=== PATIENT | female | born 1980 | race Caucasian/White ===

== ENCOUNTER 2020-02-04 11:40 | Outpatient (CLI) | payer MEDICAID, SELFPAY ==
--- NOTE | 2020-02-04 11:45 | USCV_ITS ---
Amanda Aceves Age: 39 Gender: F : 1980 Exam Date: 02/04/2020 12:00 Ordering Phys: Arturo Keenan Technologist: Liss Ross Exam Location: [facility] [place]_ Indication: R/O DVT. FOREARM PAIN. HISTORY: Upper extremity pain. PROCEDURES: Examined were the right jugular, subclavian, axillary, brachial, basilic, radial, ulnar and cephalic veins. Serial compression, augmentation maneuvers, and spectral Doppler flow evaluation were performed. FINDINGS: All veins appear free of thrombus. No filling defects on color Doppler flow analysis. Increase in venous flow with augmentation. Vein flow and caliber vary with respiration. All veins appear compressible.. CONCLUSIONS No evidence of thrombus of the right upper extremity veins. Omar Hooper MD (Electronically Signed) Final Date: 04 February 2020 12:48 S
== END 2020-02-04 11:41 | disposition home or self-care (01) ==
LOC: RADWPI 11:49
PROVIDERS: PCP Family Medicine; Visit Provider Family Medicine
DX: M79.631 Pain in right forearm (principal)
CPT/HCPCS: 93971

== ENCOUNTER 2020-06-21 19:32 | Emergency (ER) | payer MEDICAID, SELFPAY ==
[2020-06-21 19:37] VITALS: BP 114/86; PULSE 83; RESP 20; TEMP 36.4; O2SAT 96; BMI 39.6
--- NOTE | 2020-06-21 20:03 | XRR_ITS ---
PROCEDURE INFORMATION: Exam: XR Chest, 1 View Exam date and time: 06/21/2020 8:30 PM Age: 39 years old Clinical indication: Dyspnea; Prior surgery; Surgery type: Valve, gb TECHNIQUE: Imaging protocol: XR of the chest Views: 1 view. COMPARISON: No relevant prior studies available. FINDINGS: Tubes, catheters and devices: Cardiomegaly with cardiac valve prosthesis. Lungs: Linear areas of scarring or atelectasis right mid and left lower lung. Pleural space: Likely artifact at the level of the costophrenic angles versus underlying pleural thickening. Heart/Mediastinum: See discussion above. Bones/joints: Postoperative sternotomy. XR/XR chest 1V portable [id number] IMPRESSION: 1. Cardiac enlargement. 2. Linear areas of scarring or atelectasis right mid and left lower lung.
--- NOTE | 2020-06-21 20:04 | CTR_ITS ---
PROCEDURE INFORMATION: Exam: CT Angiography Chest With Contrast Exam date and time: 06/21/2020 9:17 PM Age: 39 years old Clinical indication: Shortness of breath; Other: Nvd w bloody stool; Prior surgery; Surgery date: 6+ months; Surgery type: Valve, gb; Patient HX: C/O SOB w n/v/d and bloody stool; Additional info: Dyspnea, n/v/d bloody stool TECHNIQUE: Imaging protocol: Computed tomographic angiography of the chest with intravenous contrast. 3D rendering (Not supervised by radiologist): MIP and/or 3D reconstructed images were created by the technologist. Radiation optimization: All CT scans at this facility use at least one of these dose optimization techniques: automated exposure control; mA and/or kV adjustment per patient size (includes targeted exams where dose is matched to clinical indication); or iterative reconstruction. Contrast material: VISI 320; Contrast volume: 75 ml; Contrast route: INTRAVENOUS (IV); COMPARISON: No relevant prior studies available. RADIATION DOSE METRICS: Total DLP (mGy-cm): 2288.33 FINDINGS: Pulmonary arteries: The main pulmonary artery is dilated to 4.3 cm. The pulmonary arteries are adequately opacified for evaluation to the subsegmental level. There is no filling defect to suggest embolism. Aorta: The aorta is unremarkable. There is no aneurysm. Lungs: There is mild diffuse bilateral interlobular septal thickening. There is subsegmental atelectasis in the lower lungs bilaterally. There is no focal consolidation. Pleural space: Unremarkable. No pneumothorax. No pleural effusion. Heart: There is moderate enlargement of the right atrium and right ventricle. There is no pericardial effusion. Lymph nodes: There is lymph node enlargement in the upper mediastinum measuring up to 2.5 x 1.9 cm in the right paratracheal region on axial series 301, image 127. Bilateral hilar lymph nodes are mildly prominent. Bones/joints: There has been a sternotomy with intact repair. No dehiscence. Soft tissues: The extrathoracic soft tissues are unremarkable. IMPRESSION: 1. No pulmonary embolism. 2. Findings suggestive of pulmonary hypertension. 3. Nonspecific upper mediastinal lymphadenopathy. 4. Diffuse bilateral interlobular septal thickening suggest mild interstitial edema. PROCEDURE INFORMATION: Exam: CT Angiography Abdomen and Pelvis With Contrast Exam date and time: 06/21/2020 9:17 PM Age: 39 years old Clinical indication: Shortness of breath; Other: Nvd w bloody stool; Prior surgery; Surgery date: 6+ months; Surgery type: Valve, gb; Patient HX: C/O SOB w n/v/d and bloody stool; Additional info: Dyspnea, n/v/d bloody stool TECHNIQUE: Imaging protocol: Computed tomographic angiography of the abdomen and pelvis with intravenous contrast material. 3D rendering (Not supervised by radiologist): MIP and/or 3D reconstructed images were created by the technologist. Radiation optimization: All CT scans at this facility use at least one of these dose optimization techniques: automated exposure control; mA and/or kV adjustment per patient size (includes targeted exams where dose is matched to clinical indication); or iterative reconstruction. Contrast material: VISI 320; Contrast volume: 75 ml; Contrast route: INTRAVENOUS (IV); COMPARISON: No relevant prior studies available. RADIATION DOSE METRICS: Total DLP (mGy-cm): 1223.57 FINDINGS: Aorta: The aorta is small diffusely. The infrarenal aorta measures up to a 1 cm diameter. The distal aorta is occluded at the level of the iliac bifurcation. Celiac trunk and mesenteric arteries: No occlusion or significant stenosis. Renal arteries: No occlusion or significant stenosis. Right iliac arteries: The right common and external iliac arteries are completely occluded. Right femoral/popliteal arteries: There is reconstitution of the right common femoral artery from the inferior epigastric artery. Left iliac arteries: The origin of the left common iliac artery is occluded. The vessel is reconstituted and is widely patent 1 cm beyond the origin. Other veins: Left gonadal veins are dilated. Liver: The liver is normal. Gallbladder and bile ducts: The gallbladder is absent. There is mild edema in the kenneth hepatis. No biliary dilation. Pancreas: The pancreas is unremarkable. Spleen: The spleen is unremarkable. Adrenals: The adrenal glands are unremarkable. Kidneys and ureters: There is moderate atrophy of the right kidney. There is no hydronephrosis or ureteral dilation. Stomach and bowel: The colon is unremarkable. Appendix: The appendix is normal. Intraperitoneal space: There is trace fluid in the kenneth hepatis extending inferiorly into the retroperitoneum and right pelvis. There is no intrahepatic or extrahepatic bile duct dilation. There is no free air or significant intraperitoneal free fluid. There is no intraperitoneal free air. Lymph nodes: Small retrocrural lymph nodes are present. There are mildly prominent retroperitoneal lymph nodes. No frankly pathologically enlarged nodes. Normal pelvic and mesenteric lymph nodes. Bladder: The urinary bladder is unremarkable. Reproductive: The uterus is unremarkable. There is no adnexal mass or large cyst. Bones/joints: There are chronic bilateral L5 pars defects with grade 1 anterolisthesis of L5 on S1. Soft tissues: The abdominal wall is intact. The abdominal wall is intact. CT/CT angio chest abdomen pelvis IMPRESSION: 1. 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 The left common iliac artery is reconstituted 1 cm beyond its origin and is normal more distally. 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 The right common femoral artery is reconstituted via the inferior epigastric artery. 2. Small caliber aorta. The infrarenal aorta measures approximately 1 cm diameter. 3. Normal visceral arteries. 4. Incidental findings above. Radiation Dose CTDIVOL = (mGy): DLP = 1223.57~2288.33 (mGy-cm)
--- NOTE | 2020-06-21 20:05 | ECG_ITS ---
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 Measurements Intervals [place] Rate: 77 P: 53 SC: 171 QRS: 55 QRSD: 128 T: -16 QT: 396 QTc: 450 Interpretive Statements SINUS RHYTHM POSSIBLE LEFT ATRIAL ENLARGEMENT [-0.1mV P WAVE IN V1/V2] RIGHT BUNDLE BRANCH BLOCK [120+ ms QRS DURATION, UPRIGHT V1, 40+ ms S IN I/aVL/V4/V5/V6] MODERATE T-WAVE ABNORMALITY, CONSIDER INFERIOR ISCHEMIA [-0.1+ mV T WAVE IN II/aVF] No previous ECG available for comparison Electronically Signed On 06-22-2020 0:21:03 CDT by Bryan Caputo M.D. [email or web address]
[2020-06-21 20:24] VITALS: BP 97/70; PULSE 81; RESP 14; O2SAT 96
[2020-06-21 20:35] LABS: ABG PCO2 30.9 mmHg (35-45); ABG PH Result 7.41 (7.35-7.45); Arterial Blood Gas Hematocrit 44.6 % (37-47); Base Excess ABG -3.9 mmol/L (-2.0-2.0); Blood Gas Allen Test Pos; Blood Gas Sample Site Radial, right; Blood Gas Sample Type Arterial; HCO3 ABG 19.6 mmol/L (22-26); PO2 ABG 64.2 mmHg (80.0-100.0)
[2020-06-21 20:37] LABS: Basophils # 0.1 10^3/uL (0.0-0.1); Basophils % 0.4 %; Eosinophils % 0.2 %; Hematocrit 47.2 % (37.0-47.0); Hemoglobin 14.4 g/dL (11.5-15.3); Lymphocytes # 0.5 10^3/uL (0.8-4.8); Lymphocytes % 4.1 %; Mean Corpuscular HGB Conc 30.5 g/dL (30.0-36.0); Mean Corpuscular Hemoglobin 31.3 pg (28.0-34.0); Mean Corpuscular Volume 102.6 fL (81-99); Mean Platelet Volume 12.7 fL (7.4-10.4); Monocytes # 0.8 10^3/uL (0.2-0.9); Monocytes % 7.2 %; Neutrophils # 10.05 10^3/uL (1.8-7.7); Neutrophils % 87.8 %; Nucleated Red Blood Cells % 0.3 %; Platelet Count 198 10^3/cmm (130-400); Red Cell Distribution Width 18.6 % (12.1-15.1); White Blood Count 11.4 10^3/uL (4.0-10.0)
[2020-06-21] MEDS: ondansetron 2 mg/ML SDV 2 mL 4 MG IVP (20:43)
[2020-06-21] MEDS: sodium chloride 0.9% 1,000 ML 100 ML IV (20:43)
[2020-06-21] MEDS: piperacillin-tazobactam 3.375 GM in sodium chloride 0.9% (plus) 50 ML IV (20:43)
[2020-06-21 20:46] LABS: Bilirubin Urine Neg (NEGATIVE); Blood Urine 2+ (Negative); Glucose Urine UA Norm (Normal); Ketones Urine Negative (Negative); Leukocyte Esterase Urine Trace (Negative); Nitrate Urine Negative (Negative); Protein Urine 1+ (Negative); Specific Gravity, Urine 1.015 (1.005-1.030); Urine Appearance Clear (CLEAR); Urine Color Yellow (Yellow); Urobilinogen Urine Norm (Negative); pH Urine 5 (5-7)
[2020-06-21 20:49] LABS: Amphetamines Screen Urine Negative (Negative); Barbiturates Screen Urine Negative (Negative); Benzodiazepines Screen Urine Negative (Negative); Cocaine Screen Urine Negative (Negative); Opiate Screen Urine Negative (Negative); PCP Screen Urine Negative (Negative); THC Screen Urine Negative (Negative)
[2020-06-21 20:51] LABS: Add Urine Culture? No; Bacteria Urine 1+; Squamous Epithelial Cell Urine 15-25 (0-5); WBC Urine 0-4 /hpf (0-5)
[2020-06-21 21:00] LABS: INR 1.42 (0.8-1.2)
[2020-06-21 21:01] LABS: HCG, Serum Qual Negative (Negative)
[2020-06-21 21:03] LABS: D Dimer 1.08 ug/mIFEU (0-0.59)
[2020-06-21 21:10] LABS: Lactic Sepsis W/Reflex 2.1 mmol/L (0.5-2.2)
[2020-06-21 21:11] LABS: Troponin(5th) Baseline 18 ng/L (0-10)
[2020-06-21 21:16] LABS: Alanine Aminotransferase 88 U/L (0-33); Albumin Level 3.9 g/dL (3.5-5.2); Alkaline Phosphatase 136 IU/L (35-105); Aspartate Amino Transferase 53 U/L (0-32); Blood Urea Nitrogen 32 mg/dL (6-20); Calcium 8.6 mg/dL (8.5-10.5); Carbon Dioxide 19 mmol/L (22-29); Chloride 103 mmol/L (98-107); Globulin 3.7 g/dL (1.3-4.6); Glomerular Filtration Rate 49.8 mL/min (90-130); Glucose 137 mg/dL (65-115); Lipase 47 U/L (13-60); Osmolality Calculated 279 mOsm/kg (285-295); Sodium 135 mmol/L (136-145); Thyroid Stimulating Hormone 3.58 uIU/mL (0.27-4.20); Total Bilirubin 0.9 mg/dL (0.15-1.2); Total Protein 7.6 g/dL (6.6-8.7)
[2020-06-21 21:18] LABS: Anion Gap 17.4 (5-19); Potassium 4.4 mmol/L (3.5-5.1)
--- NOTE | 2020-06-21 21:46 | W.ED.SOB ---
HPI - SOB/Dyspnea General: Chief Complaint: Shortness of Breath/Dyspnea Stated Complaint: trouble breathing/ diarea/ vomiting Time Seen by Provider: 06/21/20 19:50 Source: patient and family Mode of arrival: ambulatory Limitations: no limitations History of Present Illness: HPI Narrative: Amanda is a nice 39-year-old female who comes in complaining of shortness of breath that is worse with exertion, nausea vomiting and diarrhea. Patient states that her symptoms began over the past 2 to 3 days. She is had numerous diarrhea stools and at times is been having blood in her stools. She states it is bright red in nature. She is vomited 3 times but denies any hematic emesis or coffee-ground emesis. She does admit to being on Eliquis. Patient also states she is got spots on her skin which are irritating and bothering her. She denies any cough, loss of sense of taste or loss of sense of smell. She is having intermittent cramping abdominal pain. She denies any chest pain she only complains of having shortness of breath. 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 She had a prolonged recovery and was discharged from [facility] and had to go to an LTAC for rehab. Patient is felt better until just recently. Associated symptoms: Reports abdominal pain, nausea and vomiting; Deny chest congestion, chest pain, diaphoresis, dizziness, extremity pain, fever(s), hemoptysis, lightheadedness, orthopnea, palpitations or syncope Review of Systems Const: Denies: fever(s), chills, body aches, fatigue, malaise or diaphoresis Eyes: Denies: change in vision, blurry vision, photophobia, eye discomfort, eye discharge or eye redness ENMT: Denies: throat pain, odynophagia, hoarseness, swelling of lips/tongue, ear or mastoid pain, ear discharge, change in hearing or nasal discharge Card: Denies: chest pain, palpitations, irregular heart rhythm, edema, lightheadedness, syncope, pre-syncope, dyspnea on exertion or orthopnea Resp: Reports: dyspnea; Denies: productive cough, non-productive cough, wheezing, hemoptysis or chest congestion GI: Reports: abdominal pain, nausea, vomiting, diarrhea and hematochezia; Denies: hematemesis, coffee ground emesis, heartburn, constipation or melena : Denies: flank pain, dysuria, urinary frequency, urinary urgency or hematuria Musc: Denies: neck pain, back pain, extremity pain, extremity swelling, joint pain, joint swelling, joint redness, joint warmth or joint stiffness Skin/Breast: Denies: rash, pruritus, erythema or skin tenderness Neuro: Denies: headache(s), numbness in extremities, weakness in extremities, sensory changes, lack of coordination, difficulty walking, dizziness, vertigo, confusion, Slurred speech present or seizure-like activity Dinh/Lymph: Denies: easy bruising, easy bleeding, petechiae, purpura or enlarged lymph nodes All/Imm: Denies: urticaria, throat swelling, tongue swelling, facial swelling or acute wheezing PFSH ED PFSH: Medical History (Updated 06/21/20 @ 23:21 by Urvashi Hernandez) Anemia Anxiety Congestive heart failure Depression GERD (gastroesophageal reflux disease) Hypertension Mitral valve prolapse Myocardial infarction Neuropathy Surgical History (Updated 06/21/20 @ 22:15 by Urvashi Hernandez) H/O tubal ligation Mitral valve replaced S/P cholecystectomy Female Reproductive History: Date of last menstrual period: 06/19/20 Physical Exam Const: COMMON NORMALS: no acute distress, patient oriented x3, no limitations, healthy appearing and well nourished GENERAL APPEARANCE: cooperative, well kempt and well developed HENMT: COMMON NORMALS: normocephalic, atraumatic, external ears normal, EAC's normal and Normal external nose present HEAD & SCALP: normal to inspection, normocephalic and atraumatic FACE & SINUS: normal facial exam and face symmetric NOSE: Normal external nose present and Normal nares present EXTERNAL EAR: Yes external ears normal EXTERNAL AUDITORY CANAL: EAC's normal MOUTH: Normal oral and palatal mucosa present, lip normal and tongue normal Eye: COMMON NORMALS: Equal, round and reactive pupils present and conjunctivae normal GENERAL EYE: appearance normal, both eyes and all related structures ALIGNMENT: Yes alignment normal PERIORBITAL: periorbital findings normal EYELID: eyelids normal CONJUNCTIVA: Yes conjunctivae normal SCLERA: sclerae normal PUPIL: Yes Equal, round and reactive pupils present Neck/C-Spine: COMMON NORMALS: full ROM, no lymphadenopathy, supple, no meningeal signs and no JVD GENERAL: Yes normal visual inspection and Yes trachea midline Chest: COMMONS NORMALS: normal inspection of the chest and normal palpation of entire chest wall Resp: COMMON NORMALS: normal respiratory effort, No retractions, No use of accessory muscles and clear to auscultation bilaterally EFFORT & INSPECTION: Yes able to speak in complete sentences and Yes symmetric chest movement AUSCULTATION: clear to auscultation bilaterally, no crackles, no rales, no rhonchi and no wheezes Cardio: COMMON NORMALS: no JVD, regular rate, regular rhythm, S1 normal heart sound present and S2 normal heart sound present RATE: regular rate RHYTHM: regular rhythm HEART SOUNDS: S1 normal heart sound present, S2 normal heart sound present, no click, no gallops, Murmur heart sound present, no rubs and abnormal split S2 GI: COMMON NORMALS: Soft to palpation and No hepatosplenomegaly present PALPATION: Yes Soft to palpation, No Tenderness to palpation present (GI), No Guarding due to palpation present (GI), No Rigid due to palpation, Yes No hepatosplenomegaly present, No Hernia present, No Palpable mass present and No Pulsatile mass present : COMMON NORMALS: Yes no CVA tenderness BLADDER/KIDNEY EXAM: Yes no CVA tenderness EXTERNAL FEMALE EXAM: No Hernia present Back/Pelvis: COMMON NORMALS: no CVA tenderness, thoracic and lumbar spine normal to inspection, no thoracic nor lumbar tenderness and thoraco-lumbar ROM normal Extremity: COMMON NORMALS: normal to inspection, full ROM, capillary refill normal, no joint enlargement, no clubbing, cyanosis or edema and no calf tenderness Neuro: COMMON NORMALS: patient oriented x3, CN's II-XII intact bilaterally, moves all extremities, no focal motor deficits and no sensory deficits noted MENINGEAL SIGNS: Yes no meningeal signs SPEECH: speech normal Psych: COMMON NORMALS: mental status grossly normal, Normal thought process present, cooperative, normal affect, speech normal and activity/motor behavior normal APPEARANCE: Yes well kempt SPEECH: Yes normal speech THOUGHT PROCESS: Normal thought process present Skin: COMMON NORMALS: no rashes or lesions noted, turgor normal, no jaundice, no petechiae and no mottling GENERAL SKIN EXAM: no rashes or lesions noted and turgor normal Course ED course: 2315 -patient has palpable and dopplered pulses in both lower extremities this was tested after CTA results. Vital Signs: Vital signs: Vital Signs Temperature 97.6 F 06/21/20 19:37 Pulse Rate 83 06/21/20 22:45 Respiratory Rate 12 06/21/20 22:45 Blood Pressure 113/84 06/21/20 22:45 Pulse Oximetry 98 06/21/20 22:45 MDM - SOB/Dyspnea MDM Narrative: Medical decision making narrative: 2321 - Amanda is a 39-year-old female who comes in with a complaints of shortness of breath and bloody diarrhea. Believe her shortness of breath is explained by pulmonary vascular congestion from CHF. Her bloody diarrhea I am concerned though may be caused by infection and made worse by the fact she is on Eliquis. Also concerned with lesions on the patient's skin that she may have a recurrence of her endocarditis. She been empirically loaded with Zosyn and vancomycin. 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 She has collateral flow so she has no ischemia to her extremities. Radiologist when I talked to him over the phone says the patient has good superior mesenteric and inferior mesenteric flow. Patient is already anticoagulated on Eliquis. Because of this aortic occlusion and her abdominal pain I have to be concerned about a possible acute cause although this is more than likely chronic. I have no vascular surgery available at this time and after discussing the case with Dr. Agee he agrees the patient is to be transferred to [facility]. Patient was previously seen and treated at [facility] when she had her last episode of sepsis from endocarditis. I have reviewed some of the information symptom from [facility] and it confirms the patient's report of having endocarditis, sepsis and a prolonged hospital stay. This time the patient is stable she has had more watery diarrhea here with slight blood tinge to it. Her abdominal pain is controlled. 2340 -the case was reviewed with Dr. Mejia at [facility] ER and he agrees to accept the patient in transfer. Patient is currently hemodynamically stable. Her pain is controlled and I do not believe it it is a good idea at this time to change anticoagulation as she is having frankly bloody stools. I would send the patient by air ambulance service if available but secondary to weather nothing is flying at this time. Patient will be transferred to life threat ground transport to [place]. Lab Data: Labs: Lab Results 06/21/20 06/21/20 06/21/20 Range/Units 20:20 20:20 20:25 WBC (4.0-10.0) 10^3/ uL RBC (4.1-5.3) 10^6/u L Hgb (11.5-15.3) g/dL Hct (37.0-47.0) % MCV (81-99) fL MCH (28.0-34.0) pg MCHC (30.0-36.0) g/dL RDW (12.1-15.1) % Plt Count (130-400) 10^3/c mm MPV (7.4-10.4) fL Neut % (Auto) % Lymph % (Auto) % [place] % (Auto) % Eos % (Auto) % Baso % (Auto) % Neut # (Auto) (1.8-7.7) 10^3/u L Lymph # (Auto) (0.8-4.8) 10^3/u L [place] # (Auto) (0.2-0.9) 10^3/u L Eos # (Auto) (0.0-0.8) 10^3/u L Baso # (Auto) (0.0-0.1) 10^3/u L Nucleated RBC % (a uto) % Nucleated RBCs # /100WBC PT (12.1-14.9) SECO NDS INR (0.8-1.2) APTT (23.9-36.7) SECO NDS D-Dimer (0-0.59) ug/mIFE U Specimen Type Arterial Sample Site Radial, right ABG pH 7.41 (7.35-7.45) ABG pCO2 30.9 L (35-45) mmHg ABG pO2 64.2 L (80.0-100.0) mmH g ABG HCO3 19.6 L (22-26) mmol/L ABG Base Excess -3.9 L (-2.0-2.0) mmol/ L Shilo Test Pos Hematocrit 44.6 (37-47) % Crab Steamer ID ellpe Sodium (136-145) mmol/L Potassium (3.5-5.1) mmol/L Chloride (98-107) mmol/L Carbon Dioxide (22-29) mmol/L Anion Gap (5-19) BUN (6-20) mg/dL Creatinine (0.5-0.9) mg/dL GFR Calculation (90-130) mL/min Glucose (65-115) mg/dL Calculated Osmolal ity (285-295) mOsm/k g Lactic Acid (0.5-2.2) mmol/L Lactic Acid (Sepsi s) (0.5-2.2) mmol/L Calcium (8.5-10.5) mg/dL Magnesium (1.7-2.3) mg/dL Total Bilirubin (0.15-1.2) mg/dL AST (0-32) U/L ALT (0-33) U/L Alkaline Phosphata se (35-105) IU/L Troponin T Baselin e (0-10) ng/L Troponin T 120 Min iliamna (0-10) ng/L Delta Troponin T (0-10) ABS# NT-Pro-B Natriuret Pep (0-125) pg/mL Total Protein (6.6-8.7) g/dL Albumin (3.5-5.2) g/dL Globulin (1.3-4.6) g/dL Lipase (13-60) U/L TSH (0.27-4.20) uIU/ mL HCG, Qual (Negative) Urine Color Yellow (Yellow) Urine Appearance Clear (CLEAR) Urine pH 5 (5-7) Ur Specific Gravit y 1.015 (1.005-1.030) Urine Protein 1+ H (Negative) Urine Glucose (UA) Norm (Normal) Urine Ketones Negative (Negative) Urine Blood 2+ H (Negative) Urine Nitrate Negative (Negative) Urine Bilirubin Neg (NEGATIVE) Urine Urobilinogen Norm (Negative) mg/dL Ur Leukocyte Kerry ase Trace H (Negative) Urine RBC 5-10 H (0-2) /hpf Urine WBC 0-4 H (0-5) /hpf Ur Squamous Epith Cells 15-25 H (0-5) Amorphous Sediment Not Reportable Urine Bacteria 1+ H (NONE) Urine Opiates Scre en Negative (Negative) ng/mL Ur Barbiturates Sc reen Negative (Negative) ng/mL Ur Phencyclidine S crn Negative (Negative) ng/mL Ur Amphetamines Sc reen Negative (Negative) ng/mL U Benzodiazepines Scrn Negative (Negative) ng/mL Urine Cocaine Scre en Negative (Negative) ng/mL U Marijuana (THC) Screen Negative (Negative) ng/mL 06/21/20 06/21/20 06/21/20 Range/Units 20:26 20:26 20:26 WBC 11.4 H (4.0-10.0) 10^3/ uL RBC 4.60 (4.1-5.3) 10^6/u L Hgb 14.4 (11.5-15.3) g/dL Hct 47.2 H (37.0-47.0) % MCV 102.6 H (81-99) fL MCH 31.3 (28.0-34.0) pg MCHC 30.5 (30.0-36.0) g/dL RDW 18.6 H (12.1-15.1) % Plt Count 198 (130-400) 10^3/c mm MPV 12.7 H (7.4-10.4) fL Neut % (Auto) 87.8 % Lymph % (Auto) 4.1 % [place] % (Auto) 7.2 % Eos % (Auto) 0.2 % Baso % (Auto) 0.4 % Neut # (Auto) 10.05 H (1.8-7.7) 10^3/u L Lymph # (Auto) 0.5 L (0.8-4.8) 10^3/u L [place] # (Auto) 0.8 (0.2-0.9) 10^3/u L Eos # (Auto) 0.0 (0.0-0.8) 10^3/u L Baso # (Auto) 0.1 (0.0-0.1) 10^3/u L Nucleated RBC % (a uto) 0.3 % Nucleated RBCs # 0.0 /100WBC PT 17.80 H (12.1-14.9) SECO NDS INR 1.42 H (0.8-1.2) APTT 29.0 (23.9-36.7) SECO NDS D-Dimer 1.08 H (0-0.59) ug/mIFE U Specimen Type Sample Site ABG pH (7.35-7.45) ABG pCO2 (35-45) mmHg ABG pO2 (80.0-100.0) mmH g ABG HCO3 (22-26) mmol/L ABG Base Excess (-2.0-2.0) mmol/ L Shilo Test Hematocrit (37-47) % Crab Steamer ID Sodium 135 L (136-145) mmol/L Potassium 4.4 (3.5-5.1) mmol/L Chloride 103 (98-107) mmol/L Carbon Dioxide 19 L (22-29) mmol/L Anion Gap 17.4 (5-19) BUN 32 H (6-20) mg/dL Creatinine 1.2 H (0.5-0.9) mg/dL GFR Calculation 49.8 L (90-130) mL/min Glucose 137 H (65-115) mg/dL Calculated Osmolal ity 279 L (285-295) mOsm/k g Lactic Acid (0.5-2.2) mmol/L Lactic Acid (Sepsi s) (0.5-2.2) mmol/L Calcium 8.6 (8.5-10.5) mg/dL Magnesium 2.0 (1.7-2.3) mg/dL Total Bilirubin 0.9 (0.15-1.2) mg/dL AST 53 H (0-32) U/L ALT 88 H (0-33) U/L Alkaline Phosphata se 136 H (35-105) IU/L Troponin T Baselin e (0-10) ng/L Troponin T 120 Min [place] (0-10) ng/L Delta Troponin T (0-10) ABS# NT-Pro-B Natriuret Pep (0-125) pg/mL Total Protein 7.6 (6.6-8.7) g/dL Albumin 3.9 (3.5-5.2) g/dL Globulin 3.7 (1.3-4.6) g/dL Lipase 47 (13-60) U/L TSH 3.58 (0.27-4.20) uIU/ mL HCG, Qual (Negative) Urine Color (Yellow) Urine Appearance (CLEAR) Urine pH (5-7) Ur Specific Gravit y (1.005-1.030) Urine Protein (Negative) Urine Glucose (UA) (Normal) Urine Ketones (Negative) Urine Blood (Negative) Urine Nitrate (Negative) Urine Bilirubin (NEGATIVE) Urine Urobilinogen (Negative) mg/dL Ur Leukocyte Kerry ase (Negative) Urine RBC (0-2) /hpf Urine WBC (0-5) /hpf Ur Squamous Epith Cells (0-5) Amorphous Sediment Urine Bacteria (NONE) Urine Opiates Scre en (Negative) ng/mL Ur Barbiturates Sc reen (Negative) ng/mL Ur Phencyclidine S crn (Negative) ng/mL Ur Amphetamines Sc reen (Negative) ng/mL U Benzodiazepines Scrn (Negative) ng/mL Urine Cocaine Scre en (Negative) ng/mL U Marijuana (THC) Screen (Negative) ng/mL 06/21/20 06/21/20 06/21/20 Range/Units 20:26 20:26 20:26 WBC (4.0-10.0) 10^3/ uL RBC (4.1-5.3) 10^6/u L Hgb (11.5-15.3) g/dL Hct (37.0-47.0) % MCV (81-99) fL MCH (28.0-34.0) pg MCHC (30.0-36.0) g/dL RDW (12.1-15.1) % Plt Count (130-400) 10^3/c mm MPV (7.4-10.4) fL Neut % (Auto) % Lymph % (Auto) % [place] % (Auto) % Eos % (Auto) % Baso % (Auto) % Neut # (Auto) (1.8-7.7) 10^3/u L Lymph # (Auto) (0.8-4.8) 10^3/u L [place] # (Auto) (0.2-0.9) 10^3/u L Eos # (Auto) (0.0-0.8) 10^3/u L Baso # (Auto) (0.0-0.1) 10^3/u L Nucleated RBC % (a uto) % Nucleated RBCs # /100WBC PT (12.1-14.9) SECO NDS INR (0.8-1.2) APTT (23.9-36.7) SECO NDS D-Dimer (0-0.59) ug/mIFE U Specimen Type Sample Site ABG pH (7.35-7.45) ABG pCO2 (35-45) mmHg ABG pO2 (80.0-100.0) mmH g ABG HCO3 (22-26) mmol/L ABG Base Excess (-2.0-2.0) mmol/ L Shilo Test Hematocrit (37-47) % Crab Steamer ID Sodium (136-145) mmol/L Potassium (3.5-5.1) mmol/L Chloride (98-107) mmol/L Carbon Dioxide (22-29) mmol/L Anion Gap (5-19) BUN (6-20) mg/dL Creatinine (0.5-0.9) mg/dL GFR Calculation (90-130) mL/min Glucose (65-115) mg/dL Calculated Osmolal ity (285-295) mOsm/k g Lactic Acid 2.1 (0.5-2.2) mmol/L Lactic Acid (Sepsi s) (0.5-2.2) mmol/L Calcium (8.5-10.5) mg/dL Magnesium (1.7-2.3) mg/dL Total Bilirubin (0.15-1.2) mg/dL AST (0-32) U/L ALT (0-33) U/L Alkaline Phosphata se (35-105) IU/L Troponin T Baselin e 18 H (0-10) ng/L Troponin T 120 Min [place] (0-10) ng/L Delta Troponin T (0-10) ABS# NT-Pro-B Natriuret Pep (0-125) pg/mL Total Protein (6.6-8.7) g/dL Albumin (3.5-5.2) g/dL Globulin (1.3-4.6) g/dL Lipase (13-60) U/L TSH (0.27-4.20) uIU/ mL HCG, Qual Negative (Negative) Urine Color (Yellow) Urine Appearance (CLEAR) Urine pH (5-7) Ur Specific Gravit y (1.005-1.030) Urine Protein (Negative) Urine Glucose (UA) (Normal) Urine Ketones (Negative) Urine Blood (Negative) Urine Nitrate (Negative) Urine Bilirubin (NEGATIVE) Urine Urobilinogen (Negative) mg/dL Ur Leukocyte Kerry ase (Negative) Urine RBC (0-2) /hpf Urine WBC (0-5) /hpf Ur Squamous Epith Cells (0-5) Amorphous Sediment Urine Bacteria (NONE) Urine Opiates Scre en (Negative) ng/mL Ur Barbiturates Sc reen (Negative) ng/mL Ur Phencyclidine S crn (Negative) ng/mL Ur Amphetamines Sc reen (Negative) ng/mL U Benzodiazepines Scrn (Negative) ng/mL Urine Cocaine Scre en (Negative) ng/mL U Marijuana (THC) Screen (Negative) ng/mL 06/21/20 06/21/20 06/21/20 Range/Units 20:26 22:28 22:28 WBC (4.0-10.0) 10^3/ uL RBC (4.1-5.3) 10^6/u L Hgb (11.5-15.3) g/dL Hct (37.0-47.0) % MCV (81-99) fL MCH (28.0-34.0) pg MCHC (30.0-36.0) g/dL RDW (12.1-15.1) % Plt Count (130-400) 10^3/c mm MPV (7.4-10.4) fL Neut % (Auto) % Lymph % (Auto) % [place] % (Auto) % Eos % (Auto) % Baso % (Auto) % Neut # (Auto) (1.8-7.7) 10^3/u L Lymph # (Auto) (0.8-4.8) 10^3/u L [place] # (Auto) (0.2-0.9) 10^3/u L Eos # (Auto) (0.0-0.8) 10^3/u L Baso # (Auto) (0.0-0.1) 10^3/u L Nucleated RBC % (a uto) % Nucleated RBCs # /100WBC PT (12.1-14.9) SECO NDS INR (0.8-1.2) APTT (23.9-36.7) SECO NDS D-Dimer (0-0.59) ug/mIFE U Specimen Type Sample Site ABG pH (7.35-7.45) ABG pCO2 (35-45) mmHg ABG pO2 (80.0-100.0) mmH g ABG HCO3 (22-26) mmol/L ABG Base Excess (-2.0-2.0) mmol/ L Shilo Test Hematocrit (37-47) % Crab Steamer ID Sodium (136-145) mmol/L Potassium (3.5-5.1) mmol/L Chloride (98-107) mmol/L Carbon Dioxide (22-29) mmol/L Anion Gap (5-19) BUN (6-20) mg/dL Creatinine (0.5-0.9) mg/dL GFR Calculation (90-130) mL/min Glucose (65-115) mg/dL Calculated Osmolal ity (285-295) mOsm/k g Lactic Acid (0.5-2.2) mmol/L Lactic Acid (Sepsi s) 2.0 (0.5-2.2) mmol/L Calcium (8.5-10.5) mg/dL Magnesium (1.7-2.3) mg/dL Total Bilirubin (0.15-1.2) mg/dL AST (0-32) U/L ALT (0-33) U/L Alkaline Phosphata se (35-105) IU/L Troponin T Baselin e (0-10) ng/L Troponin T 120 Min ili[place] 16.21 H (0-10) ng/L Delta Troponin T -1.79 L (0-10) ABS# NT-Pro-B Natriuret Pep 8473 H (0-125) pg/mL Total Protein (6.6-8.7) g/dL Albumin (3.5-5.2) g/dL Globulin (1.3-4.6) g/dL Lipase (13-60) U/L TSH (0.27-4.20) uIU/ mL HCG, Qual (Negative) Urine Color (Yellow) Urine Appearance (CLEAR) Urine pH (5-7) Ur Specific Gravit y (1.005-1.030) Urine Protein (Negative) Urine Glucose (UA) (Normal) Urine Ketones (Negative) Urine Blood (Negative) Urine Nitrate (Negative) Urine Bilirubin (NEGATIVE) Urine Urobilinogen (Negative) mg/dL Ur Leukocyte Kerry ase (Negative) Urine RBC (0-2) /hpf Urine WBC (0-5) /hpf Ur Squamous Epith Cells (0-5) Amorphous Sediment Urine Bacteria (NONE) Urine Opiates Scre en (Negative) ng/mL Ur Barbiturates Sc reen (Negative) ng/mL Ur Phencyclidine S crn (Negative) ng/mL Ur Amphetamines Sc reen (Negative) ng/mL U Benzodiazepines Scrn (Negative) ng/mL Urine Cocaine Scre en (Negative) ng/mL U Marijuana (THC) Screen (Negative) ng/mL Imaging Data^: CXR: Attestation: I personally reviewed and interpreted this imaging study as follows: My impression: Cardiomegaly with mild to moderate pulmonary vascular congestion CTA Chest/Abdomen/Pelvis: Radiologist's impression: [facility] [address] [place] [address] CT Scan Report Signed with Cinthya Patient: Amanda Aceves Unit #: [id number] : 1980 Age/Sex: 39 / F ADM Date: 06/21/20 Loc: ER Room/Bed: Attending Dr: Ordering Provider/Ordering MD: Urvashi Hernandez DO Date of Service: 06/21/20 Procedure(s): CT angio chest abdomen pelvis Accession Number(s): [id number] Report Number: [id number]/CT angio chest abdomen pelvis THIS REPORT CONTAINS FINDINGS THAT MAY BE CRITICAL TO PATIENT CARE. The findings were verbally communicated via telephone conference with Urvashi Hernandez at 10:56 PM CDT on 06/21/2020. The findings were acknowledged and understood. Radiation Dose CTDIVOL = (mGy): DLP = 1223.57 2288.33 (mGy-cm) Addendum Dictated By: Eloy Cota MD Addendum Signed By: Eloy Cota MD Signed Date/Time: 2258 Addendum Cosigned By: PROCEDURE INFORMATION: Exam: CT Angiography Chest With Contrast Exam date and time: 06/21/2020 9:17 PM Age: 39 years old Clinical indication: Shortness of breath; Other: Nvd w bloody stool; Prior surgery; Surgery date: 6+ months; Surgery type: Valve, gb; Patient HX: C/O SOB w n/v/d and bloody stool; Additional info: Dyspnea, n/v/d bloody stool TECHNIQUE: Imaging protocol: Computed tomographic angiography of the chest with intravenous contrast. 3D rendering (Not supervised by radiologist): MIP and/or 3D reconstructed images were created by the technologist. Radiation optimization: All CT scans at this facility use at least one of these dose optimization techniques: automated exposure control; mA and/or kV adjustment per patient size (includes targeted exams where dose is matched to clinical indication); or iterative reconstruction. Contrast material: VISI 320; Contrast volume: 75 ml; Contrast route: INTRAVENOUS (IV); COMPARISON: No relevant prior studies available. RADIATION DOSE METRICS: Total DLP (mGy-cm): 2288.33 FINDINGS: Pulmonary arteries: The main pulmonary artery is dilated to 4.3 cm. The pulmonary arteries are adequately opacified for evaluation to the subsegmental level. There is no filling defect to suggest embolism. Aorta: The aorta is unremarkable. There is no aneurysm. Lungs: There is mild diffuse bilateral interlobular septal thickening. There is subsegmental atelectasis in the lower lungs bilaterally. There is no focal consolidation. Pleural space: Unremarkable. No pneumothorax. No pleural effusion. Heart: There is moderate enlargement of the right atrium and right ventricle. There is no pericardial effusion. Lymph nodes: There is lymph node enlargement in the upper mediastinum measuring up to 2.5 x 1.9 cm in the right paratracheal region on axial series 301, image 127. Bilateral hilar lymph nodes are mildly prominent. Bones/joints: There has been a sternotomy with intact repair. No dehiscence. Soft tissues: The extrathoracic soft tissues are unremarkable. IMPRESSION: 1. No pulmonary embolism. 2. Findings suggestive of pulmonary hypertension. 3. Nonspecific upper mediastinal lymphadenopathy. 4. Diffuse bilateral interlobular septal thickening suggest mild interstitial edema. PROCEDURE INFORMATION: Exam: CT Angiography Abdomen and Pelvis With Contrast Exam date and time: 06/21/2020 9:17 PM Age: 39 years old Clinical indication: Shortness of breath; Other: Nvd w bloody stool; Prior surgery; Surgery date: 6+ months; Surgery type: Valve, gb; Patient HX: C/O SOB w n/v/d and bloody stool; Additional info: Dyspnea, n/v/d bloody stool TECHNIQUE: Imaging protocol: Computed tomographic angiography of the abdomen and pelvis with intravenous contrast material. 3D rendering (Not supervised by radiologist): MIP and/or 3D reconstructed images were created by the technologist. Radiation optimization: All CT scans at this facility use at least one of these dose optimization techniques: automated exposure control; mA and/or kV adjustment per patient size (includes targeted exams where dose is matched to clinical indication); or iterative reconstruction. Contrast material: VISI 320; Contrast volume: 75 ml; Contrast route: INTRAVENOUS (IV); COMPARISON: No relevant prior studies available. RADIATION DOSE METRICS: Total DLP (mGy-cm): 1223.57 FINDINGS: Aorta: The aorta is small diffusely. The infrarenal aorta measures up to a 1 cm diameter. The distal aorta is occluded at the level of the iliac bifurcation. Celiac trunk and mesenteric arteries: No occlusion or significant stenosis. Renal arteries: No occlusion or significant stenosis. Right iliac arteries: The right common and external iliac arteries are completely occluded. Right femoral/popliteal arteries: There is reconstitution of the right common femoral artery from the inferior epigastric artery. Left iliac arteries: The origin of the left common iliac artery is occluded. The vessel is reconstituted and is widely patent 1 cm beyond the origin. Other veins: Left gonadal veins are dilated. Liver: The liver is normal. Gallbladder and bile ducts: The gallbladder is absent. There is mild edema in the kenneth hepatis. No biliary dilation. Pancreas: The pancreas is unremarkable. Spleen: The spleen is unremarkable. Adrenals: The adrenal glands are unremarkable. Kidneys and ureters: There is moderate atrophy of the right kidney. There is no hydronephrosis or ureteral dilation. Stomach and bowel: The colon is unremarkable. Appendix: The appendix is normal. Intraperitoneal space: There is trace fluid in the kenneth hepatis extending inferiorly into the retroperitoneum and right pelvis. There is no intrahepatic or extrahepatic bile duct dilation. There is no free air or significant intraperitoneal free fluid. There is no intraperitoneal free air. Lymph nodes: Small retrocrural lymph nodes are present. There are mildly prominent retroperitoneal lymph nodes. No frankly pathologically enlarged nodes. Normal pelvic and mesenteric lymph nodes. Bladder: The urinary bladder is unremarkable. Reproductive: The uterus is unremarkable. There is no adnexal mass or large cyst. Bones/joints: There are chronic bilateral L5 pars defects with grade 1 anterolisthesis of L5 on S1. Soft tissues: The abdominal wall is intact. The abdominal wall is intact. CT/CT angio chest abdomen pelvis IMPRESSION: 1. 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 The left common iliac artery is reconstituted 1 cm beyond its origin and is normal more distally. 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 The right common femoral artery is reconstituted via the inferior epigastric artery. 2. Small caliber aorta. The infrarenal aorta measures approximately 1 cm diameter. 3. Normal visceral arteries. 4. Incidental findings above. Radiation Dose CTDIVOL = (mGy): DLP = 1223.57 2288.33 (mGy-cm) Dictated By: Eloy Cota MD Signed By: Eloy Cota MD Signed Date/Time: 06/21/202256 DD/ 55 EKG Data^: EKG 1: Attestation: I personally reviewed and interpreted this EKG as follows: EKG Interpretation Date: 06/21/20 EKG interpretation time: 20:31 Interpretation: Normal sinus rhythm at 77 beats a minute, right bundle branch block, normal intervals, nonspecific ST and T wave changes. No old for comparison EKG 2: Attestation: I personally reviewed and interpreted this EKG as follows: EKG Interpretation Date: 06/21/20 EKG interpretation time: 22:26 Interpretation: Normal sinus rhythm at 72 beats a minute, right bundle branch block, normal intervals, nonspecific ST and T wave changes. Discharge Plan Discharge Patient Disposition: Xfer Short-Term Hosp Clinical Impression: Occlusion of aorta, Bloody diarrhea Congestive heart failure Qualifiers: Heart failure type: unspecified Heart failure chronicity: acute on chronic Qualified Code(s): I50.9 - Heart failure, unspecified Condition: Stable Referrals: Arturo Keenan [Primary Care Provider] - Coding Level of Care Code ED Engineering Job Titles for [facility] Fwd Exam Comprehensive
[2020-06-21 21:56] VITALS: BP 99/75; PULSE 76; RESP 14; O2SAT 95
--- NOTE | 2020-06-21 22:05 | ECG_ITS ---
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 Measurements Intervals [place] Rate: 72 P: 36 WI: 200 QRS: 60 QRSD: 140 T: 8 QT: 425 QTc: 466 Interpretive Statements SINUS RHYTHM POSSIBLE RIGHT ATRIAL ENLARGEMENT [0.25mV P WAVE] RIGHT BUNDLE BRANCH BLOCK [120+ ms QRS DURATION, UPRIGHT V1, 40+ ms S IN I/aVL/V4/V5/V6] Compared to ECG 06/21/2020 20:31:54 T-wave abnormality no longer present Possible ischemia no longer present Electronically Signed On 06-22-2020 0:55:29 CDT by Bryan Caputo M.D. [id number]
[2020-06-21 22:17] LABS: Reflex Lactate Order REFLEX LACTIC ORDERD
[2020-06-21] MEDS: iodixanol 320 mg/mL 100mL Btl IV (22:41)
[2020-06-21 22:45] VITALS: BP 113/84; PULSE 83; RESP 12; O2SAT 98
[2020-06-21 22:58] LABS: Troponin 5 2HR 16.21 ng/L (0-10)
[2020-06-21 22:59] LABS: Troponin 5 2HR Delta -1.79 ABS# (0-10)
[2020-06-21 23:05] LABS: NT Pro B Type Natriuretic Pept 8473 pg/mL (0-125)
[2020-06-21 23:57] VITALS: RESP 18; O2SAT 98
[2020-06-21] MEDS: HYDROmorphone 1 mg/mL INJ 1 mL IVP (23:57)
[2020-06-22 00:20] VITALS: BP 110/82; PULSE 70; RESP 18; O2SAT 100
== END 2020-06-22 00:22 | disposition short-term general hospital (02) ==
PROVIDERS: Emergency Provider Emergency Medicine; PCP Family Medicine
DX: I74.09 Other arterial embolism and thrombosis of abdominal aorta (principal); K92.1 Melena; I11.0 Hypertensive heart disease with heart failure; I50.9 Heart failure, unspecified; I25.2 Old myocardial infarction
CPT/HCPCS: 12345; 36600; 71045; 71275; 74174; 80053; 80306; 81001; 82803; 83605; 83690; 83735; 83880; 84443; 84484; 84703; 85025; 85378; 85610; 85730; 87040; 93005; 96361; 96365; 96367; 96375; 99284; 99285; J1170; J2405; J2543; J3370; J7030; J7050; Q9967